=== PATIENT | female | born 1970 ===

== ENCOUNTER → 2016-06-24 | Day surgery (SDC) | payer OTHER ==
[2016-06-07 15:45] VITALS: Ht 162.6 cm; Wt 65.9 kg
[~2016-06-24] VITALS: Ht 162.6 cm; Wt 65.9 kg
[~2016-06-24] MED LIST: ATROPINE SULFATE 0.1 MG/ML 5ML SYR IV PRN; BIOT1CAP8 PO; BUPIVACAINE 0.25% 2.5MG/ML PF 10 ML VIAL INFIL ONE; EpHEDrine SULFATE INJ 50 MG/ML AMP IV PRN; FENTANYL CITRATE INJ 50 MCG/1 ML 2 ML VIAL ONE; LACTATED RINGER'S 1000ML 1,000 ML IV SCH; MIDAZOLAM HCL 1 MG/ML 2ML VIAL ONE; NAPR1TAB9 PO; ONDANSETRON INJ 2 MG/ML 2 ML VIAL ONE; TRAM-10 PO
--- NOTE | 2016-06-24 10:38 | History & Physical Bridge - [place] ---
H&P Re-Evaluation Bridge Note: I have examined the patient, reviewed the History & Physical and in the interval since the performance of the History & Physical I have noted the following changes of clinical significance: No changes noted
[2016-06-24] MEDS: LIDOCAINE HCL 1% 20 ML VIAL ONE ×2 (11:12→11:24)
--- NOTE | 2016-06-24 11:42 | Discharge Instructions ---
Discharge Instructions Date of Service Jun 24, 2016. Visit Reason for Visit: Sacroiliitis Discharge Discharge Diagnosis / Problem: Low back pain Discharge Goals Goal(s): Decrease discomfort, Improve function Activity Recommendations Activity Limitations: resume your previous activity Anesthesia . Post Anesthesia Instructions: If you have had General Anesthesia or IV Sedation: * Do not drive today. * Resume driving when surgeon permits. * Do not make important decisions or sign legal documents today. * Call surgeon for: 1. Temperature elevations greater than 101 degrees F. 2. Uncontrollable pain. 3. Excessive bleeding. 4. Persistent nausea and vomiting. 5. Medication intolerance (nausea, vomiting or rash). * For nausea and vomiting use only clear liquids such as: tea, soda, bouillon until nausea subsides, then gradually increase diet as tolerated. * If you have any concerns or questions, call your surgeon's office. If physician is unavailable and it is an emergency, call 911 or go to the nearest emergency room. . Diet Recommendations Recommended Home Diet: resume previous diet Procedures Procedures Performed: Left Cooled Sacroiliac Joint Radio Frequency Denervation Pending Studies Studies pending at discharge: no Medical Emergencies . Who to Call and When: Medical Emergencies: If at any time you feel your situation is an emergency, please call 911 immediately. . Non-Emergent Contact Non-Emergency issues call your: Specialist . . "Provider Documentation" section prepared by Alvaro Whipple.
--- NOTE | 2016-06-24 11:54 | OPERATIVE REPORT ---
DATE OF OPERATION: 06/24/2016 PREOPERATIVE DIAGNOSIS: Left sacroiliitis. POSTOPERATIVE DIAGNOSIS: Same. PROCEDURE: Left sacroiliac radiofrequency cooled denervation. INDICATIONS: The patient is a 45-year-old white female who underwent a successful response to a block and provided her with short duration relief. She remains functionally limited by the sacroiliac joint pain and presents today for an SI joint denervation to provide her with longer lasting benefit. PHYSICAL EXAMINATION: Pleasant female seated comfortably. She has point tenderness to palpation of her left SI joint, worse with extension. She has normal motor and sensory examination of her lower extremities. CONSENT: Verbal and written consent was obtained from the patient. Risks and benefits were reviewed. Risks include but are not limited to abscess, allergic reaction, bleeding and cooled denervation. The patient wishes to proceed. PROCEDURE: The patient was taken back into the procedures room of the OR #2 of the [facility]. She was maintained in a prone position, had conscious sedation throughout the procedure but was able to converse freely and appropriately. The overlying skin of the S1 superior lateral aspect foramen was anesthetized with 4 mL of lidocaine 1% with a 25 gauge 1.5-inch needle and then the overlying skin on the lateral aspect of the S2 foramen was anesthetized with 4 mL of lidocaine 1% with a 25 gauge 1.5-inch needle. The cooled Synergy needle was then placed first targeting the left sacral ala. All denervations were cooled for 2 minutes and 30 seconds in the following order: Left sacral ala, left superior lateral S1 foramen, left lateral S1 foramen, left lateral inferior S1 foramen, left lateral superior S2 foramen, left lateral S2 foramen, left lateral inferior S2 foramen and left lateral superior S3 foramen. The procedure was well tolerated. She had some discomfort during the procedure in a familiar area of this area referring to the sacroiliac area. DISPOSITION: 1. The patient is taken out into the discharge recovery area where she will be discharged home once discharge criteria have been met. 2. Follow up in the [facility] office in 2-4 weeks. I attest to the content of the Intraoperative Record and any orders documented therein. Any exceptio ns are noted below.
[2016-06-24 12:04] VITALS: BP 111/73; PULSE 70; O2SAT 98
--- NOTE | 2016-06-24 12:09 | Anesthesia Progress Nt - [facility] ---
Anesthesia Post Op Note Date & Time Jun 24, 2016 at 12:08 Vital Signs Pain Intensity: 6 Vital Signs Past 12 Hours Date Time Temp Pulse Resp B/P Pulse Ox O2 Delivery O2 Flow Rate FiO2 06/24/16 12:04 70 16 111/73 98 Room Air 06/24/16 11:44 36.7 65 20 102/69 98 Room Air 06/24/16 10:20 36.6 82 20 128/79 97 Room Air Notes Mental Status: alert / awake / arousable, participated in evaluation Pt Amnestic to Procedure: Yes Nausea / Vomiting: adequately controlled Pain: adequately controlled Airway Patency, RR, SpO2: stable & adequate BP & HR: stable & adequate Hydration State: stable & adequate Anesthetic Complications: no major complications apparent
== END | disposition home or self-care (01) ==
LOC: X.SURG 09:59
PROVIDERS: ATTEND Physical Medicine & Rehabilitation
DX: M46.1 Sacroiliitis, not elsewhere classified (principal)

== ENCOUNTER → 2017-04-03 | Outpatient (CLI) | payer OTHER ==
[~2017-04-03] MED LIST changes: -ATROPINE SULFATE 0.1 MG/ML 5ML SYR IV PRN; -BUPIVACAINE 0.25% 2.5MG/ML PF 10 ML VIAL INFIL ONE; -EpHEDrine SULFATE INJ 50 MG/ML AMP IV PRN; -FENTANYL CITRATE INJ 50 MCG/1 ML 2 ML VIAL ONE; -LACTATED RINGER'S 1000ML 1,000 ML IV SCH; -MIDAZOLAM HCL 1 MG/ML 2ML VIAL ONE; -ONDANSETRON INJ 2 MG/ML 2 ML VIAL ONE
== END | disposition home or self-care (01) ==
LOC: C.RDSM 10:00
PROVIDERS: ATTEND Physical Medicine & Rehabilitation Sports Medicine
DX: M24.152 Other articular cartilage disorders, left hip (principal)